=== PATIENT | male | born 1960 | race Caucasian/White ===

== ENCOUNTER 2020-02-25 14:45 | Emergency (ER) | payer BC ==
[~2020-02-25] VITALS: Ht 185.4 cm; Wt 97.7 kg
[2020-02-25] MEDS ORDERED: TETanus/Pertussis (Acell)/Diphther VAC/PF (Tdap-Adult) 0.5ml syringe IMVAC ONE (15:00)
[2020-02-25] MEDS ORDERED: LIDOcaine 1% W/epiNEPHrine 1:200,000 10ml vial IJ ONE (15:00)
[2020-02-25] MEDS ORDERED: LIDOcaine 1% W/epiNEPHrine 1:100,000 20ml vial IJ ONE (15:05)
[2020-02-25 15:14] VITALS: BP 117/83
--- NOTE | 2020-02-25 15:47 | NUR ---
IRRIGATE WOUND PRIOR TO STAPLING
== END 2020-02-25 16:43 | disposition home or self-care (01) ==
LOC: ER 14:46
DX: S01.91XA Laceration without foreign body of unspecified part of head, initial encounter (principal); W22.8XXA Striking against or struck by other objects, initial encounter; Y93.89 Activity, other specified; Y92.89 Other specified places as the place of occurrence of the external cause; Y99.8 Other external cause status
CPT/HCPCS: 12001; 90471; 90715; 99283